=== PATIENT | female | born 1995 | race Caucasian/White ===

== ENCOUNTER 2020-11-15 15:38 | Emergency (ER) | payer OTHER, SELFPAY ==
[2020-11-15 15:43] VITALS: BP 124/78; PULSE 77; RESP 18; TEMP 36.6; O2SAT 97; BMI 27.4
[2020-11-15 15:53] VITALS: PULSE 78; RESP 18; O2SAT 97
--- NOTE | 2020-11-15 15:53 | XRR_ITS ---
PROCEDURE INFORMATION: Exam: XR Nasal Bones, Minimum of 3 Views, Complete Exam date and time: 11/15/2020 4:03 PM Age: 24 years old Clinical indication: Injury or trauma; Other: Not specified; Blunt trauma (contusions or hematomas); Nose TECHNIQUE: Imaging protocol: XR of the nasal bones, minimum of 3 views. Complete exam. COMPARISON: No relevant prior studies available. FINDINGS: Sinuses: There is complete opacification seen in the right maxillary sinus. Moderate mucosal thickening is seen in the left maxillary sinus. The nasal septum is midline. The ethmoid sinuses, sphenoid sinus and frontal sinuses are unremarkable. The finding seen correspond to chronic sinusitis Bones/joints: No fracture. Soft tissues: Unremarkable. XR/XR nasal bones min 3V [id number] IMPRESSION: 1. Chronic sinusitis maxillary sinuses 2. Negative for facial bone abnormality.
--- NOTE | 2020-11-15 15:53 | XRR_ITS ---
PROCEDURE INFORMATION: Exam: XR Left Ribs with PA Chest, 3 Views Exam date and time: 11/15/2020 4:03 PM Age: 24 years old Clinical indication: Injury or trauma; Other: Not specified; Rib area, left side; Blunt trauma TECHNIQUE: Imaging protocol: XR Left ribs 3 views with PA chest. COMPARISON: No relevant prior studies available. FINDINGS: Lungs: Unremarkable. No consolidation. Pleural spaces: Unremarkable. No pleural effusion. No pneumothorax. Heart/Mediastinum: Unremarkable. No cardiomegaly. Bones/joints: Unremarkable. XR/XR ribs LT mn 3V w CXR1V [id number] IMPRESSION: No acute findings.
--- NOTE | 2020-11-15 16:45 | ED_ITS ---
HPI - Trauma General: Chief Complaint: Trauma Stated Complaint: BROKEN NOSE/ BROKEN RIBS Time Seen by Provider: 11/15/20 15:41 History of Present Illness: HPI narrative: 24-year-old female was involved in a sledding accident. She hit a tree as she was sledding. Complaining of pain on her left lower ribs. She denies striking her head no loss conscious no difficulty breathing. No hematuria. MD complaint: injury Onset (ago): minute(s) Loss of Consciousness: no Location: chest Severity: moderate Context: other (Sledding accident) Associated symptoms: Reports chest pain (Left lateral chest); Denies abdominal pain, chills, cough, difficulty breathing, fever(s), nausea or vomiting Review of Systems Const: Denies: fever(s), chills, body aches, change in appetite, fatigue or malaise ENMT: Denies: throat pain, ear or mastoid pain, nasal discharge or nasal congestion Card: Reports: chest pain (Left lateral chest) Resp: Denies: dyspnea, productive cough or non-productive cough GI: Denies: abdominal pain, nausea, vomiting, hematemesis, coffee ground emesis, diarrhea, constipation, bloating, hematochezia or melena : Denies: flank pain, difficulty voiding, dysuria, urinary frequency or urinary urgency Skin/Breast: Denies: rash or pruritus Physical Exam Const: COMMON NORMALS: no acute distress GENERAL APPEARANCE: cooperative and comfortable ORIENTATION/CONSCIOUSNESS: Yes awake, Yes oriented to person, Yes oriented to place and Yes oriented to time HENMT: COMMON NORMALS: normocephalic, atraumatic and hearing grossly normal bilaterally HEAD & SCALP: normocephalic and atraumatic Eye: COMMON NORMALS: Equal, round and reactive pupils present, EOMs intact bilaterally, conjunctivae normal and no scleral icterus CONJUNCTIVA: Yes conjunctivae normal PUPIL: Yes Equal, round and reactive pupils present Neck/C-Spine: COMMON NORMALS: full ROM, no lymphadenopathy, supple and no JVD Lymph: LYMPHATIC: no lymphadenopathy noted and no lymphedema noted Chest: OTHER: Pain with palpation along the left lateral chest wall lower. No crepitus no subcutaneous emphysema no obvious deformity Resp: COMMON NORMALS: normal respiratory effort, No retractions, No use of accessory muscles and clear to auscultation bilaterally AUSCULTATION: clear to auscultation bilaterally Cardio: COMMON NORMALS: no JVD, regular rate, regular rhythm and No murmurs present (Cardio) RATE: regular rate RHYTHM: regular rhythm GI: COMMON NORMALS: Soft to palpation and No hepatosplenomegaly present AUSCULTATION: Yes normoactive bowel sounds PALPATION: Yes Soft to palpation, No Tenderness to palpation present (GI), No Guarding due to palpation present (GI) and Yes No hepatosplenomegaly present Extremity: COMMON NORMALS: normal to inspection, capillary refill normal, no clubbing, cyanosis or edema, no calf tenderness and no pedal edema Neuro: SENSORIUM/ORIENTATION: Yes oriented to person, Yes oriented to place and Yes oriented to time Skin: COMMON NORMALS: no rashes or lesions noted GENERAL SKIN EXAM: no rashes or lesions noted MDM - Trauma MDM Narrative: Medical decision making narrative: X-ray shows rib fracture. Discussed with the patient ice as needed pain medications given follow-up as needed Discharge Plan Discharge Patient Disposition: Home Clinical Impression: Closed rib fracture Condition: Stable Prescriptions: New hydrocodone-acetaminophen 5-325 mg tablet 1 tab PO Q6H PRN (Reason: pain) Qty: 15 RF: 0 No Action citalopram 20 mg Tablet 20 mg PO DAILY RF: 0 albuterol sulfate 90 mcg/actuation Hfa Aerosol Inhaler See Rx Instructions .ROUTE .COMPLEX RF: 0 Flonase Allergy Relief 50 mcg/actuation [place],Suspension See Rx Instructions .ROUTE .COMPLEX RF: 0 Gemmily 1 mg-20 mcg (24)/75 mg (4) Capsule 1 cap PO DAILY RF: 0 Flovent HFA See Rx Instructions .ROUTE .COMPLEX RF: 0 Discharge Orders: Discharge ED (Routine); Ordered 11/15/20 Ordered By: Gab Smith Discharge Diet: Usual diet Discharge Activity: Increase activity as tolerated Patient Instructions: Opioid Safety Activity Restrictions/Additional Instructions: Follow-up with your primary care doctor as needed. Coding Level of Care Code ED [employer] for Anton Tapia
[2020-11-15 16:57] VITALS: BP 121/76; PULSE 82; RESP 18; O2SAT 97
== END 2020-11-15 16:57 | disposition home or self-care (01) ==
PROVIDERS: Emergency Provider Family Medicine
DX: S22.32XA Fracture of one rib, left side, initial encounter for closed fracture (principal); W22.09XA Striking against other stationary object, initial encounter; Y93.23 Activity, snow (alpine) (downhill) skiing, snowboarding, sledding, tobogganing and snow tubing
CPT/HCPCS: 70160; 71101; 99283